=== PATIENT | male | born 2000 | race Caucasian/White ===

== ENCOUNTER 2024-05-15 07:12 | Emergency (ER) | payer MEDICAID ==
[~2024-05-15] VITALS: Ht 188 cm; Wt 86.2 kg
[2024-05-15 07:38] VITALS: BP 133/72; TEMP 98; O2SAT 100
[2024-05-15] MEDS ORDERED: AMOX500C2 PO (08:10)
[2024-05-15] MEDS ORDERED: LIDO30AD10 TP (08:10)
[2024-05-15] MEDS ORDERED: CYCL5TAB PO (08:10)
[2024-05-15] MEDS ORDERED: OXYC-128 PO (08:10)
[2024-05-15] MEDS ORDERED: IBUP-1955 PO (08:10)
[2024-05-15] MEDS ORDERED: LIDOCAINE 5% (PATCH) 1 EA PATCH TP ONE (08:15)
[2024-05-15] MEDS ORDERED: KETOROLAC TROMETHAMINE 15 MG/ML VIAL ONE (08:15)
[2024-05-15] MEDS: KETOROLAC TROMETHAMINE 15 MG/ML VIAL IM ONE (08:27)
[2024-05-15] MEDS: LIDOCAINE 5% (PATCH) 1 EA PATCH TP STA (08:27)
== END 2024-05-15 08:47 | disposition home or self-care (01) ==
LOC: ER 07:16
DX: R07.89 Other chest pain (principal); J02.9 Acute pharyngitis, unspecified; Z87.81 Personal history of (healed) traumatic fracture; F12.90 Cannabis use, unspecified, uncomplicated; Z59.00 Homelessness unspecified; Z76.0 Encounter for issue of repeat prescription; X58.XXXA Exposure to other specified factors, initial encounter; Y93.51 Activity, roller skating (inline) and skateboarding; Y92.89 Other specified places as the place of occurrence of the external cause; Y99.8 Other external cause status
CPT/HCPCS: 99283; 96372; J1885

== ENCOUNTER 2024-05-23 15:06 | Emergency (ER) | payer MEDICAID, OTHER ==
[~2024-05-23] VITALS: Ht 188 cm; Wt 86.2 kg
[~2024-05-23 15:06] MED LIST: AMOX500C2 PO; CYCL5TAB PO; IBUP-1955 PO; LIDO30AD10 TP; OXYC-128 PO
[2024-05-23] MEDS ORDERED: LIDOCAINE 5% (PATCH) 1 EA PATCH TP ONE (15:46)
[2024-05-23] MEDS ORDERED: KETOROLAC TROMETHAMINE 15 MG/ML VIAL ONE (15:46)
[2024-05-23] MEDS: LIDOCAINE 5% (PATCH) 1 EA PATCH TP SCH (15:53)
[2024-05-23] MEDS: KETOROLAC TROMETHAMINE 15 MG/ML VIAL IM ONE (15:53)
[2024-05-23 16:03] VITALS: BP 110/62; TEMP 98.2; O2SAT 98
== END 2024-05-23 16:10 | disposition home or self-care (01) ==
LOC: ER 15:21
DX: M79.675 Pain in left toe(s) (principal); R07.81 Pleurodynia; F19.10 Other psychoactive substance abuse, uncomplicated; Z59.00 Homelessness unspecified
CPT/HCPCS: 99283; 96372; J1885